=== PATIENT | male | born 1950 | race Two or more races ===

== ENCOUNTER 2024-04-15 12:29 | Emergency (ER) | payer OTHER ==
[~2024-04-15] VITALS: Ht 175.3 cm; Wt 64.6 kg
[2024-04-15 15:51] VITALS: BP 155/84; PULSE 74; RESP 16; TEMP 98.9; O2SAT 98
== END 2024-04-15 15:58 | disposition home or self-care (01) ==
LOC: ER 12:29
DX: S63.591A Other specified sprain of right wrist, initial encounter (principal); Z88.1 Allergy status to other antibiotic agents; W22.8XXA Striking against or struck by other objects, initial encounter; Y93.89 Activity, other specified; Y92.89 Other specified places as the place of occurrence of the external cause; Y99.8 Other external cause status
CPT/HCPCS: 73110